=== PATIENT | female | born 1935 | race Caucasian/White ===

== ENCOUNTER 2019-06-27 11:26 | Observation (INO) ==
[2019-06-27] MEDS ORDERED: NORMAL SALINE 1,000 ML IV ONE ×2 (11:57→13:47)
[2019-06-27] MEDS ORDERED: INSULIN REGULAR, HUMAN 100 UNITS/ML VIAL IV ONE (11:57)
[2019-06-27 12:23] LABS: Hematocrit 42.4 % (37.0-47.0); Hemoglobin 13.9 gm/dL (12.5-16.0); Mean Cell Volume 82.2 fl (78-100); Mean Corpuscular Hemoglobin 26.9 pg (27-31); Mean Corpuscular Hgb Conc 32.8 g/dl (32-36); Mean Platelet Volume 9.8 fl (8-12.5); Neutrophil # 6.3 K/mm3 (1.3-6.0); Neutrophil % 72.4 % (42-75.0); Platelet Count 230 K/mm3 (150-450); Red Blood Count 5.16 M/mm3 (4.2-5.4); White Blood Count 8.8 K/mm3 (4.0-10.5)
[2019-06-27 12:36] LABS: ALT 40 U/L (19-67); AST 41 U/L (0-48); Albumin * 3.3 gm/dl (3.4-5.0); Alkaline Phosphatase * 167 U/L (50-170); Anion Gap 17.9 mmol/L (6.8-13.8); BUN/Creatinine Ratio 6.6 (9.0-21.6); Bilirubin, Total 0.3 mg/dL (0.0-1.1); Blood Urea Nitrogen 11 mg/dL (3-23); Ca. Corrected For Albumin 9.1 mg/dL (8.4-10.2); Calcium * 8.9 mg/dL (7.9-10.9); Carbon Dioxide 24.6 mmol/L (24-32.6); Chloride 89 mmol/L (97-106); Potassium 3.5 mmol/L (3.4-4.6); Sodium 128 mmol/L (132-142); Total Protein 7.3 gm/dL (6.2-8.2)
[2019-06-27 13:00] LABS: Glucose * 733 mg/dL (70-110)
[2019-06-27 13:21] LABS: Urine Bilirubin Negative (NEGATIVE); Urine Ketone Negative (NEGATIVE); Urine Protein Negative (NEGATIVE); Urine Specific Gravity <=1.005 SP.GR. (1.005-1.010); Urine Urobilinogen Normal (NORMAL); Urine pH 5.5 pH (5.0-7.0)
[2019-06-27 13:33] LABS: Urine Appearance Slightly Cloudy (CLEAR); Urine Bacteria 1+; Urine Blood 5 /ul (NEGATIVE); Urine Color Yellow; Urine Nitrite Positive (NEGATIVE)
--- NOTE | 2019-06-27 14:12 | ERNOTE ---
Medical Problem HPI - Narrative Date of Service: 06/27/19 - General Chief Complaint: Diabetes Related Problem Time Seen by Provider: 06/27/19 11:46 Source: patient, family Exam Limitations: no limitations - Immun/Allergies/Home Medications Immunizations: IMMUNIZATION HX Immunizations Up to Date No History of Influenza Vaccine More Information Required Hx Pneumococcal Vaccination More Information Required Allergies/Adverse Reactions: Allergies No Known Allergies Allergy (Verified 06/04/18 07:18) Home Medications: HOME MEDICATIONS Aspirin [Aspir-Low] 81 mg PO DAILY 05/22/17 [Last Taken 06/03/18] Gemfibrozil [Lopid] 600 mg PO BID 05/22/17 [Last Taken 06/03/18] amlodipine 10 mg tablet 10 mg PO DAILY #30 tab 11/25/18 [Last Taken Unknown] benazepril 20 mg tablet 20 mg PO BID #60 tab 11/25/18 [Last Taken Unknown] gabapentin 300 mg capsule 300 mg PO BID #180 cap 01/10/19 [Last Taken Unknown] glimepiride 4 mg tablet 8 mg PO DAILY@0700 #30 tab 06/26/19 [Last Taken Unknown] metformin 500 mg tablet 500 mg PO BID #60 tab 06/26/19 [Last Taken Unknown] - History of Present History Narrative: patient presents to ed with confusion and elevated glucose, has had recent change in insulin due to management issues Timing: constant, getting worse Severity: moderate Modifying Factors - (Improves): Present: other - nothing Modifying Factors - (Worsens): Present: other - nothing Review of Systems - Review of Systems Constitutional: Present: See HPI EYE: Present: no symptoms reported ENT: Present: no symptoms reported Respiratory: Present: no symptoms reported Cardiology: Present: no symptoms reported Gastrointestinal/Abdominal: Present: no symptoms reported Genitourinary: Present: no symptoms reported Musculoskeletal: Present: no symptoms reported Skin: Present: no symptoms reported Neurological: Present: other - mildly confused Endocrine: Present: no symptoms reported Hematologic/Lymphatic: Present: no symptoms reported Psych: Present: no symptoms reported All Other Systems: All systems neg except as marked Medical History (Last Reviewed 06/25/19 @ 10:37 by Jesse Martinez CMA) Chronic fatigue (Chronic) Onset Date: Unknown Hypertension (Chronic) Onset Date: Unknown Diabetes 1.5, managed as type 1 Lives alone with help available Surgical History: Surgical History (Last Reviewed 06/25/19 @ 10:37 by Jesse Martinez CMA) H/O: section Onset Date: Unknown History of hysterectomy Onset Date: Unknown Family History: Family History (Last Reviewed 06/25/19 @ 10:37 by Jesse Martinez CMA) Grandmother Diabetes Mother Diabetes Other Cancer Social History: (Last Updated 06/25/19 @ 11:51 by Mariama Hubbard DO) Social History: usp: No Marital status: / lives independently: Yes current occupational status: retired Highest education level completed: 9th grade Service: No Tobacco: Smoking Status: Never smoker Alcohol: alcohol intake: never Substance Use: substance use type: does not use Dietary Habits: caffeine: No Physical Exam - Physical Exam General Appearance: Present: no apparent distress, anxious Head Exam: Present: normal inspection, no evidence of injury Eye Exam: Normal inspection: bilateral, PERRL: bilateral, EOMI: bilateral Ears, Nose, Throat: Present: normal ENT inspection, normal pharynx Neck: Present: normal inspection, nontender Respiratory: Present: no respiratory distress, normal breath sounds, no accessory muscle use, chest nontender, lungs clear Cardiovascular/Chest: Present: regular rate, rhythm, no murmur, normal peripheral pulses Gastrointestinal/Abdominal: Present: normal bowel sounds, nontender, nondistended, soft, no organomegaly Back Exam: Present: normal inspection, normal range of motion, no CVA tenderness, no vertebral tenderness Extremity Exam: Present: normal inspection, non-tender, normal range of motion, no edema Neurological Exam: Present: alert, oriented, normal mood/affect, no motor/sensory deficits, other - mild confusion Skin Exam: Present: normal color, warm/dry Progress - Date and Time Seen: Date and Time: 06/27/19 14:09 patient improved case discussed with dr hubbard, to admit to observation - Results and Orders Patient's Lab Results:: I have reviewed the patient's lab results. - Vital Signs Patient's Vital Signs:: I have reviewed the patient's vital signs. Vital Signs: Vital Signs 06/27/19 11:34 06/27/19 12:20 06/27/19 13:06 Temperature 36.2 C Pulse Rate 98 103 H 99 Respiratory Rate 16 15 16 Blood Pressure 132/78 133/79 133/77 O2 Sat by Pulse Oximetry 96 98 96 06/27/19 13:43 Temperature Pulse Rate 84 Respiratory Rate 16 Blood Pressure 130/76 O2 Sat by Pulse Oximetry 96 - EKG EKG #1 EKG: NSR - X-Ray X-Ray #1 X-Ray: chest Interpretation: Discd w/ radiologist - no acute process - Progress/Reassessment Chief Complaint: Diabetes Related Problem Progress:: Improved - Transfer of Care Expected Disposition: Admit Plan - Plan Plan: to admit to observation Departure Clinical Impression: Hyperglycemia due to diabetes mellitus - Departure Disposition: Short Term Hospital Inpatient Condition: Fair Referrals: Mariama Hubbard DO [Primary Care Provider] -
[2019-06-27] MEDS ORDERED: NORMAL SALINE 1,000 ML IV PRN (14:26)
--- NOTE | 2019-06-27 15:33 | HP ---
Chief Complaint - Chief Complaint Date of Service: 06/27/19 Time of Service: 15:05 Chief Complaint: hyperglycemia History of Present Illness: Patient was brought to the ER today after initial evaluation from home health nurse. She currently lives at home. When they arrived, her house was full of smoke because she had tried to cook something. Accu-Chek showed a blood sugar of greater than 500, and she was sent to the ED for further evaluation. Labs in the ED showed glucose of 733, lactate of 6.9, possible UTI with leukocyte esterase and nitrates. Normal CO2, and negative ketones. Her vitals were within normal limits. She was seen in my office 2 days prior to discuss potential dementia and NH placement. Her son, who lives in [place], came up to visit and feels like she is unsafe to live at home alone. She had fallen a couple of weeks ago and was out in her yard until a cousin came to assist. Her conversations with him over the phone have been "off." Her only food in her refrigerator is sugary - Redi Whip, root beer, and M&Ms. She has lost 50 pounds in the last year. 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 Her son is working on obtaining medical POA. She has developed paranoia of her sister, so family help is limited. He is aware she should be in a long-term, and wanted to start conservatively with home health. She has stated she does not want to go to any nursing facility. Medical History (Last Reviewed 06/27/19 @ 15:50 by Gisell Alcantara RN) Chronic fatigue (Chronic) Onset Date: Unknown Hypertension (Chronic) Onset Date: Unknown Diabetes 1.5, managed as type 1 Lives alone with help available Surgical History: Surgical History (Last Reviewed 06/27/19 @ 15:50 by Gisell Alcantara RN) H/O: section Onset Date: Unknown History of hysterectomy Onset Date: Unknown Family History: Family History (Last Reviewed 06/27/19 @ 15:50 by Gisell Alcantara RN) Grandmother Diabetes Mother Diabetes Other Cancer Social History: (Last Reviewed 06/27/19 @ 15:50 by Gisell Alcantara RN) Social History: long-term: No Marital status: / lives independently: Yes current occupational status: retired Highest education level completed: 9th grade Service: No Tobacco: Smoking Status: Never smoker Alcohol: alcohol intake: never Substance Use: substance use type: does not use Dietary Habits: caffeine: No Review Of Systems (GEN) - Review of Systems Generalized/Overall Review: Present: Weight loss Respiratory: Absent: Shortness of Breath Cardiac: Absent: Chest Pain Abdominal: Absent: Nausea, Vomiting, Constipation, Diarrhea Genitourinary: Present: No Symptoms Reported Musculoskeletal: Present: No Symptoms Reported Skin: Present: No Symptoms Reported Immunizations: IMMUNIZATION HX Immunizations Up to Date No History of Influenza Vaccine More Information Required Hx Pneumococcal Vaccination More Information Required Allergies/Adverse Reactions: Allergies Allergy/AdvReac Type Severity Reaction Status Date / Time No Known Allergies Allergy Verified 06/04/18 07:18 Home Medications: HOME MEDICATIONS Aspirin [Aspir-Low] 81 mg PO DAILY 05/22/17 [Last Taken 06/03/18] Gemfibrozil [Lopid] 600 mg PO BID 05/22/17 [Last Taken 06/03/18] amlodipine 10 mg tablet 10 mg PO DAILY #30 tab 11/25/18 [Last Taken Unknown] benazepril 20 mg tablet 20 mg PO BID #60 tab 11/25/18 [Last Taken Unknown] gabapentin 300 mg capsule 300 mg PO BID #180 cap 01/10/19 [Last Taken Unknown] glimepiride 4 mg tablet 8 mg PO DAILY@0700 #30 tab 06/26/19 [Last Taken Unknown] metformin 500 mg tablet 500 mg PO BID #60 tab 06/26/19 [Last Taken Unknown] Exam - Exam Vital Signs: Vital Signs - Last Taken Temp 36.2 C 06/27/19 11:34 Pulse 84 06/27/19 13:43 Resp 16 06/27/19 13:43 BP 130/76 06/27/19 13:43 Pulse Ox 96 06/27/19 13:43 Constitutional: Present: Alert, Cooperative, No distress, Elderly Respiratory: Present: normal breath sounds, no respiratory distress Cardiovascular/Chest: Present: regular rate, rhythm Abdomen: Present: soft, nontender Extremity: Absent: lower extremity edema Neurologic: Present: normal mood/affect Appearance: Present: impaired recent memory - did not remember home health coming to her home today Diagnostic Studies: Abnormal Lab Results 05/21/20 05/21/20 05/21/20 Range/Units 12:13 12:13 12:13 MCH 26.9 L (27-31) pg Immature Gran % (Auto) 0.50 H (0.001-0.429) % Immature Gran # (Auto) 0.04 H (0.000-0.0310) K/mm3 Lymphocytes % 19.7 L (20-51) % Neutrophils # 6.3 H (1.3-6.0) K/mm3 pO2 (83.0-108.0) mmHg HCO3 (21.0-28.0) mmol/L Base Excess (-2.0-3.0) mmol/L Sodium 128 L (132-142) mmol/L Chloride 89 L (97-106) mmol/L Anion Gap 17.9 H (6.8-13.8) mmol/L Creatinine 1.67 H (0.4-1.4) mg/dL Est GFR (Non-Af Amer) 31 L (60-130) mL/min BUN/Creatinine Ratio 6.6 L (9.0-21.6) Random Glucose 733 H (70-110) mg/dL Lactic Acid, Venous 6.9 H* (0.4-2.0) mmol/L Albumin 3.3 L (3.4-5.0) gm/dl Urine Glucose (UA) (NEGATIVE) mg/dL Urine Blood (NEGATIVE) /ul Urine Nitrate (NEGATIVE) Ur Leukocyte Esterase (NEGATIVE) /ul Urine RBC (0-5) /hpf Urine WBC (0-5) /hpf Urine Bacteria (NONE) 06/27/19 06/27/19 Range/Units 12:17 13:00 MCH (27-31) pg Immature Gran % (Auto) (0.001-0.429) % Immature Gran # (Auto) (0.000-0.0310) K/mm3 Lymphocytes % (20-51) % Neutrophils # (1.3-6.0) K/mm3 pO2 81.4 L (83.0-108.0) mmHg HCO3 18.1 L (21.0-28.0) mmol/L Base Excess -6.5 L (-2.0-3.0) mmol/L Sodium (132-142) mmol/L Chloride (97-106) mmol/L Anion Gap (6.8-13.8) mmol/L Creatinine (0.4-1.4) mg/dL Est GFR (Non-Af Amer) (60-130) mL/min BUN/Creatinine Ratio (9.0-21.6) Random Glucose (70-110) mg/dL Lactic Acid, Venous (0.4-2.0) mmol/L Albumin (3.4-5.0) gm/dl Urine Glucose (UA) >=1000 H (NEGATIVE) mg/dL Urine Blood 5 H (NEGATIVE) /ul Urine Nitrate Positive H (NEGATIVE) Ur Leukocyte Esterase 25 H (NEGATIVE) /ul Urine RBC 10-25 H (0-5) /hpf Urine WBC 10-25 H (0-5) /hpf Urine Bacteria 1+ H (NONE) Laboratory Results WBC 8.8 K/mm3 (4.0-10.5) 06/27/19 12:13 RBC 5.16 M/mm3 (4.2-5.4) 06/27/19 12:13 Hgb 13.9 gm/dL (12.5-16.0) 06/27/19 12:13 Hct 42.4 % (37.0-47.0) 06/27/19 12:13 MCV 82.2 fl (78-100) 06/27/19 12:13 MCH 26.9 pg (27-31) L 06/27/19 12:13 MCHC 32.8 g/dl (32-36) 06/27/19 12:13 RDW 14.0 % (11.5-14.0) 06/27/19 12:13 Plt Count 230 K/mm3 (150-450) 06/27/19 12:13 MPV 9.8 fl (8-12.5) 06/27/19 12:13 Immature Gran % (Auto) 0.50 % (0.001-0.429) H 06/27/19 12:13 Immature Gran # (Auto) 0.04 K/mm3 (0.000-0.0310) H 06/27/19 12:13 Neutrophils % 72.4 % (42-75.0) 06/27/19 12:13 Lymphocytes % 19.7 % (20-51) L 06/27/19 12:13 Monocytes % 6.5 % (0.0-9) 06/27/19 12:13 Eosinophils % 0.3 % (0.0-3.0) 06/27/19 12:13 Basophils % 0.6 % (0.0-1.0) 06/27/19 12:13 Nucleated RBC % 0.0 k/mm3 (0-1) 06/27/19 12:13 Neutrophils # 6.3 K/mm3 (1.3-6.0) H 06/27/19 12:13 Lymphocytes # 1.72 k/mm3 (1.5-3.5) 06/27/19 12:13 Monocytes # 0.6 k/mm3 (0.0-1.0) 06/27/19 12:13 Eosinophils # 0.0 k/mm3 (0.0-0.7) 06/27/19 12:13 Absolute Basophils 0.1 k/mm3 (0.0-0.1) 06/27/19 12:13 pCO2 33.6 mmHg (32.0-45.0) 06/27/19 12:17 pO2 81.4 mmHg (83.0-108.0) L 06/27/19 12:17 HCO3 18.1 mmol/L (21.0-28.0) L 06/27/19 12:17 Total CO2 19.2 mmol/L (19.0-24.0) 06/27/19 12:17 Base Excess -6.5 mmol/L (-2.0-3.0) L 06/27/19 12:17 ABG pH 7.35 (7.35-7.45) 06/27/19 12:17 ABG O2 Sat (Measured) 95.6 % (94.0-98.0) 06/27/19 12:17 Sodium 128 mmol/L (132-142) L 06/27/19 12:13 Plasma Sodium 138 mmol/L (130-142) 06/27/19 12:13 Potassium 3.5 mmol/L (3.4-4.6) 06/27/19 12:13 Chloride 89 mmol/L (97-106) L 06/27/19 12:13 Carbon Dioxide 24.6 mmol/L (24-32.6) 06/27/19 12:13 Anion Gap 17.9 mmol/L (6.8-13.8) H 06/27/19 12:13 BUN 11 mg/dL (3-23) 06/27/19 12:13 Creatinine 1.67 mg/dL (0.4-1.4) H 06/27/19 12:13 Est GFR (Non-Af Amer) 31 mL/min (60-130) L 06/27/19 12:13 BUN/Creatinine Ratio 6.6 (9.0-21.6) L 06/27/19 12:13 Random Glucose 733 mg/dL (70-110) H 06/27/19 12:13 Lactic Acid, Venous 6.9 mmol/L (0.4-2.0) H* 06/27/19 12:13 Calcium 8.9 mg/dL (7.9-10.9) 06/27/19 12:13 Calcium Adj for Albumin 9.1 mg/dL (8.4-10.2) 06/27/19 12:13 Total Bilirubin 0.3 mg/dL (0.0-1.1) 06/27/19 12:13 AST 41 U/L (0-48) 06/27/19 12:13 ALT 40 U/L (19-67) 06/27/19 12:13 Alkaline Phosphatase 167 U/L (50-170) 06/27/19 12:13 C-Reactive Prot, Quant Less than 0.2 mg/dL (0.0-0.9) 06/27/19 12:13 Total Protein 7.3 gm/dL (6.2-8.2) 06/27/19 12:13 Albumin 3.3 gm/dl (3.4-5.0) L 06/27/19 12:13 Urine Color Yellow 06/27/19 13:00 Urine Appearance Slightly cloudy (CLEAR) 06/27/19 13:00 Urine pH 5.5 pH (5.0-7.0) 06/27/19 13:00 Ur Specific [place] <=1.005 SP.GR. (1.005-1.010) 06/27/19 13:00 Urine Protein Negative mg/dL (NEGATIVE) 06/27/19 13:00 Urine Glucose (UA) >=1000 mg/dL (NEGATIVE) H 06/27/19 13:00 Urine Ketones Negative mg/dL (NEGATIVE) 06/27/19 13:00 Urine Blood 5 /ul (NEGATIVE) H 06/27/19 13:00 Urine Nitrate Positive (NEGATIVE) H 06/27/19 13:00 Urine Bilirubin Negative mg/dl (NEGATIVE) 06/27/19 13:00 Urine Urobilinogen Normal EU/dl (NORMAL) 06/27/19 13:00 Ur Leukocyte Esterase 25 /ul (NEGATIVE) H 06/27/19 13:00 Urine RBC 10-25 /hpf (0-5) H 06/27/19 13:00 Urine WBC 10-25 /hpf (0-5) H 06/27/19 13:00 Ur Epithelial Cells 0-5 /hpf (0-5) 06/27/19 13:00 Urine Bacteria 1+ (NONE) H 06/27/19 13:00 Urine Culture Comments Culture to follow 06/27/19 13:00 Serum Ketones Negative (NEGATIVE) 06/27/19 12:13 Assessment/Plan - Assessment/Plan (1) Hyperglycemia due to diabetes mellitus Assessment: Initial glucose of 733. CO2 was 24.9 and negative ketones, so she is not in DKA. She is alert and conversational, and reports feeling fine. Her glucose has improved to 463 after 2 L saline and 6 U humulin. Will continue 100 cc/hr NS, and sliding scale insulin. She hasn't been giving herself insulin at home, but she is unable to do so safely. Her glucose can be appropriately managed at a facility, and will use this hospitalization to determine an insulin regimen. Problem: Acute (2) Abnormal urinalysis Assessment: UA positive for nitrates and leukocyte esterase, but only 1+ bacteria. She has been given rocephin, and will continue unless culture is negative. She denies symptoms, but with her dementia, she may not be able to give reliable history. Problem: Acute (3) Lactate blood increase Assessment: Improving with fluids, from 6.9 to 2.5. Will repeat again, 3 hours from last check. Unclear etiology, as her BP is not significantly decreased. Her pH is 7.35, which is technically within normal limits, but at the lower end, bordering on acidotic. This could be a possible source. Problem: Acute (4) Dementia Assessment: Patient currently lives alone. She has family that lives close by, but she has developed some paranoia. She has stated her sister is dealing from her, so she no longer lets her in her house. Her son states this is not actually true. Her son showed pictures of her refrigerator, which only contained multiple cans of redi whip, root beer, and 100s of loose M&Ms. She has lost 50 pounds in the last year. She fell recently, and laid in the yard until her niece came by to help. She has not been taking any of her medications. Her son states her house was not clean. Her son has started the legal proceedings to get medical power of employment attorney. I do not feel she is safe to live at home and is unable to make her medical decisions. Her son reports a family history of dementia in her father. Will enlist case management assistance for placement after DC. Problem: Chronic Qualifiers: Dementia behavioral disturbance: with behavioral disturbance
[2019-06-27] MEDS: NORMAL SALINE 1,000 ML IV PRN (17:15)
[2019-06-27] MEDS: INSULIN LISPRO 100 UNITS/ML VIAL SC SCH ×2 (17:19→20:05)
[2019-06-27] MEDS ORDERED: INSULIN DETEMIR 100 UNITS/ML VIAL SC SCH (21:00)
[2019-06-28] MEDS: NORMAL SALINE 1,000 ML IV PRN ×3 (01:29→20:52)
[2019-06-28 06:38] LABS: Albumin * 2.2 gm/dl (3.4-5.0); Anion Gap 9.1 mmol/L (6.8-13.8); BUN/Creatinine Ratio 7.3 (9.0-21.6); Bilirubin, Total 0.3 mg/dL (0.0-1.1); Ca. Corrected For Albumin 9.1 mg/dL (8.4-10.2); Potassium 3.1 mmol/L (3.4-4.6); Total Protein 5.1 gm/dL (6.2-8.2)
--- NOTE | 2019-06-28 07:45 | PN ---
Subjective - Date and Time Seen Date: 06/28/19 Time: 07:44 Subjective Narrative: Is feeling fine this morning. No new concerns. Objective - Review of Systems Generalized/Overall Review: Reports: No Symptoms Reported - given her decreased cognitive function, her ROS may not be reliable. Denies: Fever Respiratory: Denies: Shortness of Breath Cardiac: Denies: Chest Pain, Edema Abdominal: Denies: Nausea, Vomiting Genitourinary Symptoms: Reports: No Symptoms Reported Musculoskeletal Complaints: Reports: No Symptoms Reported - Vitals Vitals: Last Vital Signs Temp 36.9 C 06/28/19 07:22 Pulse 80 06/28/19 07:22 Resp 20 06/28/19 07:22 BP 165/72 H 06/28/19 07:22 Pulse Ox 97 06/28/19 07:22 - Abnormal Lab Findings Abnormal Lab Findings: Abnormal Lab Results 06/27/19 06/27/19 06/27/19 Range/Units 12:13 12:13 12:13 MCH 26.9 L (27-31) pg Immature Gran % (Auto) 0.50 H (0.001-0.429) % Immature Gran # (Auto) 0.04 H (0.000-0.0310) K/mm3 Lymphocytes % 19.7 L (20-51) % Neutrophils # 6.3 H (1.3-6.0) K/mm3 pO2 (83.0-108.0) mmHg HCO3 (21.0-28.0) mmol/L Base Excess (-2.0-3.0) mmol/L Sodium 128 L (132-142) mmol/L Potassium (3.4-4.6) mmol/L Chloride 89 L (97-106) mmol/L Anion Gap 17.9 H (6.8-13.8) mmol/L Creatinine 1.67 H (0.4-1.4) mg/dL Est GFR (Non-Af Amer) 31 L (60-130) mL/min BUN/Creatinine Ratio 6.6 L (9.0-21.6) Random Glucose 733 H (70-110) mg/dL Lactic Acid, Venous 6.9 H* (0.4-2.0) mmol/L Total Protein (6.2-8.2) gm/dL Albumin 3.3 L (3.4-5.0) gm/dl Urine Glucose (UA) (NEGATIVE) mg/dL Urine Blood (NEGATIVE) /ul Urine Nitrate (NEGATIVE) Ur Leukocyte Esterase (NEGATIVE) /ul Urine RBC (0-5) /hpf Urine WBC (0-5) /hpf Urine Bacteria (NONE) 06/27/19 06/27/19 06/27/19 Range/Units 12:17 13:00 15:12 MCH (27-31) pg Immature Gran % (Auto) (0.001-0.429) % Immature Gran # (Auto) (0.000-0.0310) K/mm3 Lymphocytes % (20-51) % Neutrophils # (1.3-6.0) K/mm3 pO2 81.4 L (83.0-108.0) mmHg HCO3 18.1 L (21.0-28.0) mmol/L Base Excess -6.5 L (-2.0-3.0) mmol/L Sodium (132-142) mmol/L Potassium (3.4-4.6) mmol/L Chloride (97-106) mmol/L Anion Gap (6.8-13.8) mmol/L Creatinine (0.4-1.4) mg/dL Est GFR (Non-Af Amer) (60-130) mL/min BUN/Creatinine Ratio (9.0-21.6) Random Glucose (70-110) mg/dL Lactic Acid, Venous 2.5 H* (0.4-2.0) mmol/L Total Protein (6.2-8.2) gm/dL Albumin (3.4-5.0) gm/dl Urine Glucose (UA) >=1000 H (NEGATIVE) mg/dL Urine Blood 5 H (NEGATIVE) /ul Urine Nitrate Positive H (NEGATIVE) Ur Leukocyte Esterase 25 H (NEGATIVE) /ul Urine RBC 10-25 H (0-5) /hpf Urine WBC 10-25 H (0-5) /hpf Urine Bacteria 1+ H (NONE) 06/28/19 Range/Units 06:18 MCH (27-31) pg Immature Gran % (Auto) (0.001-0.429) % Immature Gran # (Auto) (0.000-0.0310) K/mm3 Lymphocytes % (20-51) % Neutrophils # (1.3-6.0) K/mm3 pO2 (83.0-108.0) mmHg HCO3 (21.0-28.0) mmol/L Base Excess (-2.0-3.0) mmol/L Sodium (132-142) mmol/L Potassium 3.1 L (3.4-4.6) mmol/L Chloride (97-106) mmol/L Anion Gap (6.8-13.8) mmol/L Creatinine (0.4-1.4) mg/dL Est GFR (Non-Af Amer) 59 L D (60-130) mL/min BUN/Creatinine Ratio 7.3 L (9.0-21.6) Random Glucose 189 H D (70-110) mg/dL Lactic Acid, Venous (0.4-2.0) mmol/L Total Protein 5.1 L (6.2-8.2) gm/dL Albumin 2.2 L (3.4-5.0) gm/dl Urine Glucose (UA) (NEGATIVE) mg/dL Urine Blood (NEGATIVE) /ul Urine Nitrate (NEGATIVE) Ur Leukocyte Esterase (NEGATIVE) /ul Urine RBC (0-5) /hpf Urine WBC (0-5) /hpf Urine Bacteria (NONE) - Exam Constitutional: Present: Alert, Cooperative, No distress, Elderly Respiratory: Present: lungs clear, normal breath sounds Cardiovascular/Chest: Present: regular rate, rhythm Abdomen: Present: soft, nontender Extremity: Absent: lower extremity edema Appearance: Present: impaired insight Assessment/Plan - Problems/Diagnosis (1) UTI (urinary tract infection) Problem: Acute Narrative: Urine culture is growing gram-negative bacilli. She was started on Rocephin yesterday, and will continue for a 5-day course. She denies urinary complaints, however with her dementia, I not sure her ability to answer questions accurately is intact. (2) Uncontrolled type II diabetes mellitus Problem: Acute Qualifiers: Glycemic state: with hyperglycemia Qualified Code(s): E11.65 - Type 2 diabetes mellitus with hyperglycemia Narrative: Her admission blood glucose was 733 yesterday, and was 185 this morning. She was given 6 units regular insulin in the ER, 10 units Lantus last night, and 4 units short acting insulin with supper. Her sugar this morning is still elevated greater than 180, so added another dose of Lantus, to equal 10 units Lantus twice daily. She is unable to give herself insulin at home and has not been doing so for an unknown period of time. Will need to figure out her insulin regimen while she was hospitalized. She is not mentally capable of managing her insulin on her own. Her vision is too poor to see how much insulin she is giving herself, plus she has very limited judgment and would probably go back to not giving herself insulin at all if she were at home. Recommend nursing care in a facility after discharge, for jail care to manage her insulin. Her needs were too high for home health company to accept her. She does not have family members that can administer her insulin. Her family agrees with [facility] placement. Appreciate case management assistance with this. (3) Dementia Problem: Chronic Qualifiers: Dementia behavioral disturbance: with behavioral disturbance Narrative: Tried to start home health, but she was evaluated by them, and was not accepted because her needs are too great. Patient currently lives alone. She has family that lives close by, but she has developed some paranoia. She has stated her sister is stealing from her, so she no longer lets her in her house. Her son states the stealing is not actually true. Her son showed pictures of her refrigerator, which only contained multiple cans of redi whip, root beer, and hundreds of loose M&Ms. She has lost 50 pounds in the last year. She fell recently, and laid in the yard until her niece came by to help. She has not been taking any of her medications. Her son states her house was not clean. Her son has started the legal proceedings to get medical power of assistant county attorney. I do not feel she is safe to live at home and is unable to make her medical decisions. Her son reports a family history of dementia in her father. (4) Hypokalemia Problem: Acute Narrative: Potassium of 3.1 this morning, new from yesterday. Started 20 mEq KCl twice daily. Recheck in a.m. (5) Hypertension Problem: Chronic Narrative: Her blood pressure has increased since admission. Blood pressure was 130s/70s initially, but has increased to systolic of 150s and 160s. She has 10 mg amlodipine on her home medication list, however she had not been taking her meds in quite some time. Will restart at 5 mg, and can increase to 10 mg amlodipine if needed. (6) Hyperglycemia due to diabetes mellitus Problem: Chronic (7) Lactate blood increase Problem: Resolved
[2019-06-28] MEDS: GLIMEPIRIDE 4 MG TABLET PO SCH (07:47)
[2019-06-28] MEDS: INSULIN LISPRO 100 UNITS/ML VIAL SC SCH ×4 (08:10→20:45)
[2019-06-28] MEDS: metFORMIN HCL 500 MG TABLET PO SCH ×2 (08:13→17:10)
[2019-06-28] MEDS: INSULIN DETEMIR 100 UNITS/ML VIAL SC SCH ×2 (08:13→20:45)
[2019-06-28] MEDS: POTASSIUM CHLORIDE 20 MEQ TABLET.SA PO SCH ×2 (08:13→17:10)
[2019-06-28] MEDS: amLODIPine BESYLATE 5 MG TABLET PO SCH (13:25)
[2019-06-29 06:19] LABS: Albumin * 2.3 gm/dl (3.4-5.0); Anion Gap 11.5 mmol/L (6.8-13.8); BUN/Creatinine Ratio 8.3 (9.0-21.6); Bilirubin, Total 0.1 mg/dL (0.0-1.1); Ca. Corrected For Albumin 9.1 mg/dL (8.4-10.2); Calcium * 8.1 mg/dL (7.9-10.9); Carbon Dioxide 26.7 mmol/L (24-32.6); Potassium 3.2 mmol/L (3.4-4.6); Total Protein 5.6 gm/dL (6.2-8.2)
[2019-06-29] MEDS: NORMAL SALINE 1,000 ML IV PRN ×2 (07:00→18:50)
[2019-06-29] MEDS: GLIMEPIRIDE 4 MG TABLET PO SCH (07:02)
[2019-06-29] MEDS: INSULIN LISPRO 100 UNITS/ML VIAL SC SCH ×4 (07:03→20:38)
[2019-06-29] MEDS: POTASSIUM CHLORIDE 20 MEQ TABLET.SA PO SCH ×2 (09:00→17:18)
[2019-06-29] MEDS: amLODIPine BESYLATE 5 MG TABLET PO SCH (09:00)
[2019-06-29] MEDS: metFORMIN HCL 500 MG TABLET PO SCH ×2 (09:00→17:17)
[2019-06-29] MEDS: INSULIN DETEMIR 100 UNITS/ML VIAL SC SCH ×2 (09:02→20:42)
[2019-06-29] MEDS ORDERED: POTASSIUM CHLORIDE 20 MEQ TABLET.SA PO ONE (10:25)
[2019-06-29] MEDS ORDERED: amLODIPine BESYLATE 5 MG TABLET PO ONE (10:45)
[2019-06-29] MEDS ORDERED: ACETAMINOPHEN 500 MG TABLET PO PRN (10:57)
[2019-06-29] MEDS: DOCUSATE SODIUM 100 MG CAPSULE PO SCH ×2 (11:14→20:38)
--- NOTE | 2019-06-29 11:22 | PN ---
Subjective - Date and Time Seen Date: 06/29/19 Time: 10:54 Subjective Narrative: I have left lower quadrant pain. Objective Objective Narrative: 83-year-old female admitted for UTI, hyperlactatemia, and hyperglycemia was evaluated at bedside and was found to be afebrile and in no acute distress. At first glance patient appears comfortable but on physical exam she was found to have tenderness to palpation and guarding in the left lower quadrant. Upon questioning the patient reports her pain started yesterday evening and continued throughout the night, she reports her last BM was 2 days ago. Physical exam demonstrated adequate bowel sounds and was negative for distention. Patient denies history of constipation or having this pain before. We will get an abdominal x-ray for evaluation given the fact that this is a new symptom. Urine culture shows growth of E. coli sensitive to ceftriaxone, therefore we will not change her antibiotic. She is tolerating IV hydration without any issues and her hyperlactetemia has resolved. However blood glucose readings continue to be inadequately controlled especially in the morning, therefore her diabetes medications were optimized for optimal glucose control. She was also found to have elevated blood pressures so amlodipine was increased to 10 mg daily. Additional potassium replacement was also ordered due to the persistence of hypokalemia on this morning's labs. We will continue to monitor patient closely. - Review of Systems Generalized/Overall Review: Reports: No Symptoms Reported EENTM: Reports: No Symptoms Reported Respiratory: Reports: No Symptoms Reported Cardiac: Reports: No Symptoms Reported Abdominal: Reports: Abdominal Pain Genitourinary Symptoms: Reports: Frequency Musculoskeletal Complaints: Reports: No Symptoms Reported Neurological: Reports: No Symptoms Reported Skin: Reports: No Symptoms Reported Endocrine: Reports: No Symptoms Reported - Vitals Vitals: Last Vital Signs Temp 36.9 C 06/29/19 10:00 Pulse 66 06/29/19 10:00 Resp 12 06/29/19 10:00 BP 159/64 H 06/29/19 10:00 Pulse Ox 98 06/29/19 10:00 - Abnormal Lab Findings Abnormal Lab Findings: Abnormal Lab Results 06/29/19 Range/Units 06:00 Potassium 3.2 L (3.4-4.6) mmol/L Est GFR (Non-Af Amer) 59 L (60-130) mL/min BUN/Creatinine Ratio 8.3 L (9.0-21.6) Random Glucose 217 H (70-110) mg/dL Total Protein 5.6 L (6.2-8.2) gm/dL Albumin 2.3 L (3.4-5.0) gm/dl - Exam Constitutional: Present: Alert, Cooperative, Well developed, Well nourished, No distress, Elderly ENT Exam: Present: normal ENT inspection, hearing grossly normal, pharynx normal, TMs normal Neck: Present: non-tender, full range of motion, supple, normal inspection, trachea midline Breasts: Present: Exam deferred Respiratory: Present: chest non-tender, lungs clear, normal breath sounds, no respiratory distress, no accessory muscle use, respiratory distress Cardiovascular/Chest: Present: normal peripheral pulses, regular rate, rhythm, no chest tenderness, no edema, no gallop, no JVD, no murmur, no rub Abdomen: Present: Normal bowel sounds, soft, nondistended, no hepatospenomegaly, no masses, tender - Left lower quadrant tenderness, guarding /Rectal: Present: Exam deferred Extremity: Present: normal range of motion, non-tender, normal inspection, no pedal edema, no calf tenderness, normal capillary refill, pelvis stable Skin Exam: Present: normal color, warm/dry, no cyanosis Lymphatic: Present: no adenopathy 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 We will also continue to monitor her vitals for optimal control of her blood pressure. In the meantime we will keep patient on IV hydration and IV antibiotics to manage her infection. We will follow-up with abdominal x-ray results and treat accordingly. 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
[2019-06-30] MEDS: NORMAL SALINE 1,000 ML IV PRN (04:56)
[2019-06-30] MEDS: GLIMEPIRIDE 4 MG TABLET PO SCH (07:23)
[2019-06-30 07:52] LABS: Anion Gap 13.3 mmol/L (6.8-13.8); BUN/Creatinine Ratio 10.9 (9.0-21.6); Bilirubin, Total 0.3 mg/dL (0.0-1.1); Ca. Corrected For Albumin 9.6 mg/dL (8.4-10.2); Calcium * 9.1 mg/dL (7.9-10.9); Carbon Dioxide 26.8 mmol/L (24-32.6); Potassium 4.1 mmol/L (3.4-4.6); Total Protein 6.5 gm/dL (6.2-8.2)
[2019-06-30] MEDS: INSULIN LISPRO 100 UNITS/ML VIAL SC SCH ×4 (07:54→20:53)
[2019-06-30] MEDS: DOCUSATE SODIUM 100 MG CAPSULE PO SCH ×2 (08:55→20:48)
[2019-06-30] MEDS: metFORMIN HCL 750 MG TAB.SR.24H PO SCH (08:55)
[2019-06-30] MEDS: INSULIN DETEMIR 100 UNITS/ML VIAL SC SCH ×2 (08:56→20:50)
[2019-06-30] MEDS: POTASSIUM CHLORIDE 20 MEQ TABLET.SA PO SCH ×2 (08:56→17:15)
[2019-06-30] MEDS: amLODIPine BESYLATE 10 MG TABLET PO SCH (08:56)
--- NOTE | 2019-06-30 11:19 | PN ---
Subjective - Date and Time Seen Date: 06/30/19 Time: 11:08 Subjective Narrative: I feel fine, no more abdominal pain. Objective Objective Narrative: 83-year-old female admitted for UTI, hyperlactatemia, and hyperglycem ia was evaluated at bedside during rounds this morning and was found to be afebrile and in no acute distress. Patient appears comfortable compared to yesterday when she reported left lower abdominal pain, she said the pain went away when she moved her bowels. Abdominal x-ray was non-concerning and the only finding was bowel gas pattern but no obstruction. Therefore we will not make any changes except keeping the patient on stool softeners to avoid constipation. Her blood sugars continue to get better after her insulin and oral antidiabetics were increased during rounds yesterday. Her blood pressure has also improved after her amlodipine was increased. This morning's labs demonstrated correction of her hypokalemia after the patient was treated with potassium replacements. Clinically she looks much better so we will not make any further changes to her treatment, will keep the patient on IV antibiotics to treat her UTI. - Review of Systems Generalized/Overall Review: Reports: No Symptoms Reported EENTM: Reports: No Symptoms Reported Respiratory: Reports: No Symptoms Reported Cardiac: Reports: No Symptoms Reported Abdominal: Reports: No Symptoms Reported Genitourinary Symptoms: Reports: No Symptoms Reported Musculoskeletal Complaints: Reports: No Symptoms Reported Neurological: Reports: Pre-existing Deficit, Other - Fluctuations in cognitive function Skin: Reports: No Symptoms Reported Endocrine: Reports: No Symptoms Reported - Vitals Vitals: Last Vital Signs Temp 36.1 C 06/30/19 10:39 Pulse 79 06/30/19 10:39 Resp 18 06/30/19 10:39 BP 160/79 H 06/30/19 10:39 Pulse Ox 98 06/30/19 10:39 - Abnormal Lab Findings Abnormal Lab Findings: Abnormal Lab Results 06/30/19 Range/Units 07:18 Random Glucose 162 H (70-110) mg/dL Albumin 3.0 L (3.4-5.0) gm/dl - Exam Constitutional: Present: Alert, Cooperative, Well developed, Well nourished, No distress ENT Exam: Present: normal ENT inspection, hearing grossly normal Neck: Present: non-tender, full range of motion, supple, normal inspection, trachea midline Breasts: Present: Exam deferred Respiratory: Present: chest non-tender, lungs clear, normal breath sounds, no respiratory distress, no accessory muscle use Cardiovascular/Chest: Present: normal peripheral pulses, regular rate, rhythm, no chest tenderness, no edema, no gallop, no JVD, no murmur, no rub Abdomen: Present: Normal bowel sounds, soft, nontender, nondistended, no rebound tenderness, no hepatospenomegaly, no masses /Rectal: Present: Exam deferred Extremity: Present: normal range of motion, non-tender, normal inspection, no pedal edema, no calf tenderness, normal capillary refill, pelvis stable Skin Exam: Present: normal color, warm/dry, no cyanosis Lymphatic: Present: no adenopathy Neurologic: Present: 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 Appearance: Present: appropriate appearance, neat, impaired recent memory Eye contact: Present: normal speech Thoughts: Present: normal thought pattern, no apparent hallucination Assessment/Plan Plan Narrative: We will continue to treat the patient with IV antibiotics in order to treat her UTI, IV fluids were stopped since she has been administered multiple liters since arriving. We will continue to monitor dextrose levels and BP for optimal control. 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
[2019-06-30] MEDS: metFORMIN HCL 500 MG TABLET PO SCH (17:14)
[2019-07-01] MEDS: GLIMEPIRIDE 4 MG TABLET PO SCH (07:44)
[2019-07-01] MEDS: INSULIN LISPRO 100 UNITS/ML VIAL SC SCH ×4 (07:44→20:15)
[2019-07-01] MEDS: metFORMIN HCL 750 MG TAB.SR.24H PO SCH (09:52)
[2019-07-01] MEDS: POTASSIUM CHLORIDE 20 MEQ TABLET.SA PO SCH ×2 (09:52→17:26)
[2019-07-01] MEDS: amLODIPine BESYLATE 10 MG TABLET PO SCH (09:52)
[2019-07-01] MEDS: DOCUSATE SODIUM 100 MG CAPSULE PO SCH ×2 (09:53→20:15)
[2019-07-01] MEDS: INSULIN DETEMIR 100 UNITS/ML VIAL SC SCH ×2 (09:53→20:14)
--- NOTE | 2019-07-01 12:17 | PN ---
Subjective - Date and Time Seen Date: 07/01/19 Time: 12:07 Subjective Narrative: I feel fine. Objective Objective Narrative: 83-year-old female admitted for UTI, hyperlactatemia, and hyperglycemia was evaluated at bedside during rounds this morning and was found to be afebrile and in no acute distress. Patient continues to show clinical improvement, she appears comfortable and is cooperative. When asked she denies any new symptoms or concerns. Her glucose levels have improved with the new changes made to her medications but there will continue to need close monitoring. Patient has been treated with IV antibiotics to treat her UTI and is tolerating the medication without any issues. - Review of Systems Generalized/Overall Review: Reports: No Symptoms Reported EENTM: Reports: No Symptoms Reported Respiratory: Reports: No Symptoms Reported Cardiac: Reports: No Symptoms Reported Abdominal: Reports: No Symptoms Reported Genitourinary Symptoms: Reports: No Symptoms Reported Musculoskeletal Complaints: Reports: No Symptoms Reported Neurological: Reports: No Symptoms Reported Skin: Reports: No Symptoms Reported Endocrine: Reports: No Symptoms Reported - Vitals Vitals: Last Vital Signs Temp 36.5 C 07/01/19 10:08 Pulse 79 07/01/19 10:08 Resp 18 07/01/19 10:08 BP 151/70 H 07/01/19 10:08 Pulse Ox 98 07/01/19 10:08 - Exam Constitutional: Present: Alert, Cooperative, Well developed, Well nourished, No distress, Elderly ENT Exam: Present: normal ENT inspection, hearing grossly normal, pharynx normal, TMs normal Neck: Present: non-tender, full range of motion, supple, normal inspection, trachea midline Breasts: Present: Exam deferred Respiratory: Present: chest non-tender, lungs clear, normal breath sounds, no respiratory distress, no accessory muscle use Cardiovascular/Chest: Present: normal peripheral pulses, regular rate, rhythm, no chest tenderness, no edema, no gallop, no JVD, no murmur, no rub Abdomen: Present: Normal bowel sounds, soft, nontender, nondistended, no rebound tenderness, no hepatospenomegaly, no masses /Rectal: Present: Exam deferred Extremity: Present: normal range of motion, non-tender, normal inspection, no pedal edema, no calf tenderness, normal capillary refill Skin Exam: Present: normal color, warm/dry, no cyanosis Lymphatic: Present: no adenopathy 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
[2019-07-01] MEDS: metFORMIN HCL 500 MG TABLET PO SCH (17:25)
[2019-07-02] MEDS: INSULIN LISPRO 100 UNITS/ML VIAL SC SCH ×4 (07:21→20:16)
[2019-07-02] MEDS: GLIMEPIRIDE 4 MG TABLET PO SCH (07:26)
[2019-07-02] MEDS: amLODIPine BESYLATE 10 MG TABLET PO SCH (09:25)
[2019-07-02] MEDS: POTASSIUM CHLORIDE 20 MEQ TABLET.SA PO SCH ×2 (09:25→16:15)
[2019-07-02] MEDS: metFORMIN HCL 750 MG TAB.SR.24H PO SCH (09:25)
[2019-07-02] MEDS: DOCUSATE SODIUM 100 MG CAPSULE PO SCH ×2 (09:25→20:17)
[2019-07-02] MEDS: INSULIN DETEMIR 100 UNITS/ML VIAL SC SCH (09:27)
--- NOTE | 2019-07-02 13:45 | PN ---
Subjective - Date and Time Seen Date: 07/02/19 Time: 08:15 Subjective Narrative: No new concerns from patient or her nurse. Objective - Review of Systems Generalized/Overall Review: Reports: No Symptoms Reported, Fever Respiratory: Reports: No Symptoms Reported, Shortness of Breath Cardiac: Reports: No Symptoms Reported Abdominal: Reports: No Symptoms Reported Neurological: Reports: Other - nonsensical answers to questions - Vitals Vitals: Last Vital Signs Temp 37.4 C 07/02/19 12:41 Pulse 85 07/02/19 12:41 Resp 14 07/02/19 12:41 BP 145/71 07/02/19 12:41 Pulse Ox 96 07/02/19 12:41 - Exam Constitutional: Present: Alert, Cooperative, No distress, Elderly Respiratory: Present: lungs clear, no respiratory distress Cardiovascular/Chest: Present: regular rate, rhythm Abdomen: Present: Normal bowel sounds Extremity: Present: no pedal edema Appearance: Present: impaired insight Eye contact: Present: good eye contact Thoughts: Present: other - unable to say complete sensical sentence Assessment/Plan - Problems/Diagnosis (1) Uncontrolled type II diabetes mellitus Problem: Acute Qualifiers: Glycemic state: with hyperglycemia Qualified Code(s): E11.65 - Type 2 diabetes mellitus with hyperglycemia Narrative: Blood sugar levels are now in the 100s, down from 733 on admission. She is currently getting 12 units Lantus twice daily and is prescribed sliding scale insulin. She did not require any SSI yesterday, and only received 4 U humalog the day prior. Her glucose was 106 this morning, which was a bit low. Would like to only have her Lantus given once a day for ease of administration. This would currently be 24 units daily. However, given her glucose of 106 this morning, if we were to give her 24 units tonight, anticipate her glucose would again drop to unacceptable levels in the morning. We will decrease to 10 units twice daily. Ideally, half of her insulin would be from long-acting and half from short acting. May be able to further decrease her Lantus dose. There is a chance that her blood sugar was higher due to her possible UTI. She has dementia, and is unable to self administer insulin. She is okay for discharge when she is accepted by a facility. (2) UTI (urinary tract infection) Problem: Resolved Narrative: Urine culture grew greater than 100,000 colony-forming units E. coli. She received 5 days of IV Rocephin, completed 07/01/2019. She did not complain of symptoms on admission, so unable to say if she actually had an infection or she is simply colonized. (3) Dementia Problem: Chronic Qualifiers: Dementia type: Alzheimer's disease Dementia behavioral disturbance: with behavioral disturbance Narrative: Her mentation has not improved since treating a potential UTI. She was unable to form a complete sentence this morning. Her words are clear and she is able to articulate, but she is unable to form a sentence and answer to a question. Recommend long term placement for medication administration. Tried to start home health prior to admission, but she was evaluated by them, and was not accepted because her needs are too great. Patient currently lives alone. She has family that lives close by, but she has developed some paranoia. She has stated her sister is stealing from her, so she no longer lets her in her house. Her son states the stealing is not actually true. Her son showed pictures of her refrigerator, which only contained multiple cans of redi whip, root beer, and hundreds of loose M&Ms. She has lost 50 pounds in the last year. She fell recently, and laid in the yard until her niece came by to help. She has not been taking any of her medications. Her son states her house was not clean. Her son has started the legal proceedings to get medical power of employee benefits attorney. I do not feel she is safe to live at home and is unable to make her medical decisions. Her son reports a family history of dementia in her father. (4) Hypokalemia Problem: Resolved (5) Hypertension Problem: Chronic Narrative: Home 10 mg amlodipine resumed. Blood pressure currently controlled. (6) Hyperglycemia due to diabetes mellitus Problem: Resolved (7) Lactate blood increase Problem: Resolved
[2019-07-02] MEDS: metFORMIN HCL 500 MG TABLET PO SCH (16:16)
[2019-07-02] MEDS ORDERED: INSULIN GLARGINE,HUM.REC.ANLOG 100 UNITS/ML VIAL SC SCH (21:00)
[2019-07-03 06:33] LABS: Albumin * 2.5 gm/dl (3.4-5.0); BUN/Creatinine Ratio 18.4 (9.0-21.6); Bilirubin, Total 0.2 mg/dL (0.0-1.1); Ca. Corrected For Albumin 9.8 mg/dL (8.4-10.2); Calcium * 8.9 mg/dL (7.9-10.9); Carbon Dioxide 28.7 mmol/L (24-32.6); Potassium 4.7 mmol/L (3.4-4.6); Total Protein 5.9 gm/dL (6.2-8.2)
[2019-07-03] MEDS: INSULIN LISPRO 100 UNITS/ML VIAL SC SCH ×2 (06:49→12:30)
[2019-07-03] MEDS: GLIMEPIRIDE 4 MG TABLET PO SCH (06:50)
--- NOTE | 2019-07-03 08:27 | DS ---
(1) Uncontrolled type II diabetes mellitus Problem: Chronic Qualifiers: Glycemic state: with hyperglycemia Qualified Code(s): E11.65 - Type 2 diabetes mellitus with hyperglycemia (2) UTI (urinary tract infection) Problem: Resolved (3) Dementia Problem: Chronic Qualifiers: Dementia type: Alzheimer's disease Dementia behavioral disturbance: with b ehavioral disturbance (4) Hypokalemia Problem: Resolved (5) Hypertension Problem: Chronic (6) Hyperglycemia due to diabetes mellitus Problem: Resolved (7) Lactate blood increase Problem: Resolved Date of Discharge:: 07/03/19 Hospital Course: Patient was brought to the ER on the day of admission after concerns from home health nurse. She had been living at home alone, and home health was ordered, and this was their initial evaluation. When they arrived, her house was full of smoke because she had tried to cook something. Accu-Chek showed a blood sugar of greater than 500, and she was sent to the ED for further evaluation. Labs in the ED showed glucose of 733, lactate of 6.9, and UTI. Normal CO2, and negative ketones. Her vitals were within normal limits. She was given 5 days of Rocephin during her hospitalization, and denied urinary complaints. Her glucose improved with long acting insulin, and sliding scale insulin. Her insulin requirements decreased throughout her stay, and will DC with 10 U lantus daily with low dose sliding scale insulin. She was seen in my office 2 days prior to admission to discuss potential dementia and NH placement. Her son, who lives in [place], came up to visit and feels like she is unsafe to live at home alone. She had fallen a couple of weeks ago and was out in her yard until a cousin came to assist. Her conversations with him over the phone have been "off." Her only food in her refrigerator is sugary - Redi Whip, root beer, and M&Ms. She has lost 50 pounds in the last year. 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 Her mentation did not improve after treatment of her UTI e coli. She has difficulty forming complete sentences. Her words are clear and she is able to articulate, but she is unable to form a complete lucid sentence. Recommend jail placement for medication administration, and she has been accepted to a nursing facility in [place], [place]. Tried to start home health prior to admission, but she was evaluated by them, and was not accepted because her needs are too great. She has family that lives close by, but she has developed some paranoia. She has stated her sister is stealing from her, so she no longer lets her in her house. Her son states the stealing is not actually true. Her son showed pictures of her refrigerator, which only contained multiple cans of redi whip, root beer, and hundreds of loose M&Ms. She has lost 50 pounds in the last year. She fell recently, and laid in the yard until her niece came by to help. She has not been taking any of her medications. She was severely hyperglycemin on admission. Her son states her house was not clean. Her son has started the legal proceedings to get medical power of trial attorney, and reports the paperwork has gone through. I do not feel she is safe to live at home and is unable to make her medical decisions. Her son reports a family history of dementia in her father. Procedures Performed: none Results and Findings: Lab Pending Results 06/27/19 12:13: WBC 8.8, RBC 5.16, Hgb 13.9, Hct 42.4, MCV 82.2, MCH 26.9 L, MCHC 32.8, RDW 14.0, Plt Count 230, MPV 9.8, Immature Gran % (Auto) 0.50 H, Immature Gran # (Auto) 0.04 H, Neutrophils % 72.4, Lymphocytes % 19.7 L, Monocytes % 6.5, Eosinophils % 0.3, Basophils % 0.6, Nucleated RBC % 0.0, Neutrophils # 6.3 H, Lymphocytes # 1.72, Monocytes # 0.6, Eosinophils # 0.0, Absolute Basophils 0.1 06/27/19 12:13: Sodium 128 L, Plasma Sodium 138, Potassium 3.5, Chloride 89 L, Carbon Dioxide 24.6, Anion Gap 17.9 H, BUN 11, Creatinine 1.67 H, Est GFR (Non- Af Amer) 31 L, BUN/Creatinine Ratio 6.6 L, Random Glucose 733 H, Calcium 8.9, Calcium Adj for Albumin 9.1, Total Bilirubin 0.3, AST 41, ALT 40, Alkaline Phosphatase 167, C-Reactive Prot, Quant Less than 0.2, Total Protein 7.3, Albumin 3.3 L, Serum Ketones Negative 06/27/19 12:13: Lactic Acid, Venous 6.9 H* 06/27/19 12:17: pCO2 33.6, pO2 81.4 L, HCO3 18.1 L, Total CO2 19.2, Base Excess -6.5 L, ABG pH 7.35, ABG O2 Sat (Measured) 95.6 06/27/19 13:00: Urine Color Yellow, Urine Appearance Slightly cloudy, Urine pH 5.5, Ur Specific [place] <=1.005, Urine Protein Negative, Urine Glucose (UA) >=1000 H, Urine Ketones Negative, Urine Blood 5 H, Urine Nitrate Positive H, Urine Bilirubin Negative, Urine Urobilinogen Normal, Ur Leukocyte Esterase 25 H, Urine RBC 10-25 H, Urine WBC 10-25 H, Ur Epithelial Cells 0-5, Urine Bacteria 1+ H, Urine Culture Comments Culture to follow 06/27/19 15:12: Lactic Acid, Venous 2.5 H* 06/28/19 06:18: Sodium 140, Plasma Sodium 141, Potassium 3.1 L, Chloride 105, Carbon Dioxide 29.0, Anion Gap 9.1, BUN 7, Creatinine 0.96, Est GFR (Non-Af Amer) 59 L D, BUN/Creatinine Ratio 7.3 L, Random Glucose 189 H D, Calcium 8.0, Calcium Adj for Albumin 9.1, Total Bilirubin 0.3, AST 30, ALT 26, Alkaline Phosphatase 93, Total Protein 5.1 L, Albumin 2.2 L 06/28/19 06:18: Lactic Acid, Venous 1.9 06/29/19 06:00: Sodium 140, Plasma Sodium 142, Potassium 3.2 L, Chloride 105, Carbon Dioxide 26.7, Anion Gap 11.5, BUN 8, Creatinine 0.96, Est GFR (Non-Af Amer) 59 L, BUN/Creatinine Ratio 8.3 L, Random Glucose 217 H, Calcium 8.1, Calcium Adj for Albumin 9.1, Total Bilirubin 0.1, AST 29, ALT 24, Alkaline Phosphatase 108, Total Protein 5.6 L, Albumin 2.3 L 06/30/19 07:18: Sodium 140, Plasma Sodium 141, Potassium 4.1 D, Chloride 104, Carbon Dioxide 26.8, Anion Gap 13.3, BUN 10, Creatinine 0.92, Est GFR (Non-Af Amer) 62, BUN/Creatinine Ratio 10.9, Random Glucose 162 H, Calcium 9.1, Calcium Adj for Albumin 9.6, Total Bilirubin 0.3, AST 35, ALT 28, Alkaline Phosphatase 103, Total Protein 6.5, Albumin 3.0 L 07/03/19 06:15: Sodium 139, Plasma Sodium 140, Potassium 4.7 H, Chloride 105, Carbon Dioxide 28.7, Anion Gap 10.0, BUN 18 D, Creatinine 0.98, Est GFR (Non-Af Amer) 58 L, BUN/Creatinine Ratio 18.4, Random Glucose 169 H, Calcium 8.9, Calciu m Adj for Albumin 9.8, Total Bilirubin 0.2, AST 44, ALT 32, Alkaline Phosphatase 93, Total Protein 5.9 L, Albumin 2.5 L Discharge Location: [facility] Disposition: Intermediate Care Facility ICF Condition: Fair Level of Care: ICF Discharge Activity: Activity as tolerated Discharge Diet: Consistent carbs Referrals: Mariama Alberto DO [Primary Care Provider] - (if DC'd from [facility]) Additional Patient Instructions (free text): To [facility] ICF level of care. Prescriptions (Any new or edited meds): Insulin Lispro [Humalog] 0 units SC ACHSINS #1 vial Transmission Status: Pending to [facility] Insulin Glargine,Hum.rec.anlog [Lantus] 10 units SC DAILY 30 Days #1 vial Transmission Status: Pending to [facility] Complete Home Medications List: Complete Home Medication List: Aspirin [Aspir-Low] 81 mg PO DAILY 05/22/17 glimepiride 4 mg tablet 8 mg PO DAILY@0700 #30 tab 06/26/19 Acetaminophen [Tylenol] 500 mg PO Q4H PRN tablet 07/03/19 Docusate Sodium [Colace] 100 mg PO BID PRN capsule 07/03/19 Insulin Glargine,Hum.rec.anlog [Lantus] 10 units SC DAILY 30 Days #1 vial 07/03/19 Insulin Lispro [Humalog] 0 units SC ACHSINS #1 vial 07/03/19 amLODIPine BESYLATE [Norvasc] 10 mg PO DAILY tablet 05/27/20 metFORMIN HCL [Glucophage] 500 mg PO DAILY@1700 tablet 07/03/19 Forms: Patient Portal Registration
[2019-07-03] MEDS ORDERED: INSULIN GLARGINE,HUM.REC.ANLOG 100 UNITS/ML VIAL SC SCH (09:00)
[2019-07-03] MEDS: amLODIPine BESYLATE 10 MG TABLET PO SCH (09:31)
[2019-07-03] MEDS: metFORMIN HCL 750 MG TAB.SR.24H PO SCH (09:31)
[2019-07-03] MEDS: DOCUSATE SODIUM 100 MG CAPSULE PO SCH (09:32)
[2019-07-03 13:24] VITALS: BP 149/69
== END 2019-07-03 13:10 ==
LOC: MS 11:26 → ER 11:26
PROVIDERS: ADMIT Family Medicine; ATTEND Family Medicine
DX: Z79.4 Long term (current) use of insulin; R10.32 Left lower quadrant pain; E11.40 Type 2 diabetes mellitus with diabetic neuropathy, unspecified; N39.0 Urinary tract infection, site not specified; E87.6 Hypokalemia; G30.9 Alzheimer's disease, unspecified; F02.80 Dementia in other diseases classified elsewhere, unspecified severity, without behavioral disturbance, psychotic disturbance, mood disturbance, and anxiety; B96.20 Unspecified Escherichia coli [E. coli] as the cause of diseases classified elsewhere; E11.65 Type 2 diabetes mellitus with hyperglycemia; R74.0 Nonspecific elevation of levels of transaminase and lactic acid dehydrogenase [LDH]; I10 Essential (primary) hypertension
CPT/HCPCS: 36415; 36600; 70450; 71020; 71046; 74019; 74020; 80053; 81001; 82009; 82803; 83605; 85025; 86140; 87040; 87077; 87086; 87186; 93005; 96365; 96366; 96372; 99284; G0378